=== PATIENT | male | born 1955 | race Caucasian/White ===

== ENCOUNTER 2017-09-29 14:31 | Emergency (ER) | payer OTHER, MEDICAID ==
[~2017-09-29] VITALS: Ht 162.6 cm; Wt 68.0 kg
--- NOTE | 2017-09-29 14:31 | NUR ---
Patient was BIBA and taken to bed 07 via gurney per EMS.
[2017-09-29 14:37] VITALS: BP 104/65
--- NOTE | 2017-09-29 14:50 | NUR ---
Note undone in EDM - 09/29/17 at 1451 by CHRISTIANO PT BIBA ACCOMPANIED BY CAREGIVER FOR EVALUATION OF HEAD PAIN S/P MECHANICAL FALL. HX I.D., ALZHEIMERS, OSTEOARTHRITIS, EPILEPSY, HYPERLIPIDEMIA, TRISOMY 21; DENIES N/V/D; SKIN IS PINK/WARM/DRY; AAOX4 WITH EVEN AND STEADY GAIT; LUNGS CLEAR BL; HR EVEN AND REGULAR; PT DENIES ANY FEVER, CP, SOB, OR COUGH AT THIS TIME; PATIENT STATES PAIN OF 4/10 AT THIS TIME; VSS; PATIENT POSITIONED FOR COMFORT; HOB ELEVATED; BEDRAILS UP X2; BED DOWN. ER MD MADE AWARE OF PT STATUS.
--- NOTE | 2017-09-29 14:50 | NUR ---
PT BIBA ACCOMPANIED BY CAREGIVER FOR EVALUATION OF HEAD PAIN S/P MECHANICAL FALL. HX I.D., ALZHEIMERS, OSTEOARTHRITIS, EPILEPSY, HYPERLIPIDEMIA, TRISOMY 21; DENIES N/V/D; SKIN IS PINK/WARM/DRY; AAOX4 BIB EMS VIA GURNEY; LUNGS CLEAR BL; HR EVEN AND REGULAR; PT DENIES ANY FEVER, CP, SOB, OR COUGH AT THIS TIME; PATIENT STATES PAIN OF 4/10 AT THIS TIME; VSS; PATIENT POSITIONED FOR COMFORT; HOB ELEVATED; BEDRAILS UP X2; BED DOWN. ER MD MADE AWARE OF PT STATUS.
[2017-09-29 15:55] VITALS: BP 120/67
--- NOTE | 2017-09-29 15:55 | NUR ---
Patient discharged with v/s stable. Written and verbal after care instructions given and explained. Patient verbalized understanding. Wheel Chair Assisted with by caregiver. All questions addressed prior to discharge. Advised to follow up with PMD.
== END 2017-09-29 15:55 | disposition home or self-care (01) ==
LOC: MED 14:31
DX: S09.8XXA Other specified injuries of head, initial encounter (principal); M47.892 Other spondylosis, cervical region; Q90.9 Down syndrome, unspecified; Z88.2 Allergy status to sulfonamides; W17.89XA Other fall from one level to another, initial encounter; Y93.89 Activity, other specified; Y92.89 Other specified places as the place of occurrence of the external cause; Y99.8 Other external cause status
CPT/HCPCS: 70450; 72125; 99284

== ENCOUNTER 2017-10-14 11:19 | Inpatient (IN) | payer OTHER, MEDICAID ==
[~2017-10-14] VITALS: Ht 162.6 cm; Wt 68.0 kg
--- NOTE | 2017-10-14 11:19 | NUR ---
Patient was BIBA and taken to bed 10 via gurney.
[2017-10-14 11:22] VITALS: BP 123/76
--- NOTE | 2017-10-14 11:41 | NUR ---
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
[2017-10-14] MEDS ORDERED: NACL 0.9% 1,000 ML IV ONE (12:30)
[2017-10-14 13:17] LABS: ANION GAP 10.5 (8-16); CARBON DIOXIDE 31.3 mmol/L (21-32); CREATININE 1.2 mg/dL (0.7-1.3); POTASSIUM 4.8 mmol/L (3.5-5.1)
[2017-10-14 13:21] LABS: BASOPHILS # (AUTO) 0.2 K/uL (0.00-0.22); BASOPHILS % (AUTO) 2.8 % (0.0-2.0); EOSINOPHILS # (AUTO) 0.1 K/uL (0-0.4); EOSINOPHILS % (AUTO) 0.6 % (0.0-4.0); HEMATOCRIT 49.7 % (36-52); HEMOGLOBIN 16.1 g/dL (12.0-18.0); LYMPHOCYTES # (AUTO) 1.3 K/uL (2.0-11.5); LYMPHOCYTES % (AUTO) 14.8 % (20.5-51.1); MEAN CORPUSCULAR HEMOGLOBIN 29 pg (27-31); MEAN CORPUSCULAR HGB CONC 33 g/dL (33-37); MEAN CORPUSCULAR VOLUME 90 fL (80-94); MONOCYTES # (AUTO) 0.2 K/uL (0.8-1.0); MONOCYTES % (AUTO) 2.8 % (1.7-9.3); NEUTROPHILS # (AUTO) 6.9 K/uL (1.8-7.7); PLATELET COUNT (AUTO) 254 K/uL (140-450); RED BLOOD CELL COUNT(AUTO) 5.49 MIL/uL (4.20-6.10); RED CELL DISTRIBUTION WIDTH 12.1 % (11.6-13.7); WHITE BLOOD COUNT (AUTO) 8.7 K/uL (4.8-10.8)
[2017-10-14 13:26] LABS: PROTHROMBIN TIME 10.9 secs (10.8-13.4)
[2017-10-14 13:27] LABS: ALBUMIN 3.4 g/dL (3.4-5.0); TOTAL BILIRUBIN 0.3 mg/dL (0.0-1.0)
[2017-10-14] MEDS ORDERED: NACL 0.9% 2,000 ML IV ONE (13:30)
--- NOTE | 2017-10-14 14:23 | NUR ---
CAREGIVER AT BEDSIDE;PT SLEEPING;NO ACUTE DISTRESS NOTED;
[2017-10-14] MEDS ORDERED: OSC500 PO ×2 (14:54→20:51)
[2017-10-14] MEDS ORDERED: [UNRECOGNIZED DRUG - CODE] PO (14:54)
[2017-10-14] MEDS ORDERED: CRAN450C PO (14:54)
[2017-10-14] MEDS ORDERED: CELE200C PO (14:54)
[2017-10-14] MEDS ORDERED: DONE10TA10 PO ×2 (14:54→20:51)
[2017-10-14] MEDS ORDERED: VITD1000 PO ×2 (14:54→20:51)
[2017-10-14] MEDS ORDERED: MULT-2246 PO (14:54)
[2017-10-14] MEDS ORDERED: HYDROcodone/APAP 7.5/325 MG 1 TAB PO PRN (15:10)
[2017-10-14] MEDS ORDERED: ONDANSETRON 4 MG/2 ML VIAL IVP PRN (15:10)
[2017-10-14] MEDS ORDERED: ACETAMINOPHEN 325 MG TAB PO PRN (15:10)
[2017-10-14 16:39] LABS: CHOL/HDL RATIO 3.5 (1-4.5); FREE T4 (FREE THYROXINE) 0.8 ng/dL (0.76-1.46); MAGNESIUM 2.2 mg/dL (1.8-2.4); PHOSPHORUS 3.9 mg/dL (2.5-4.9); THYROID STIMULATING HORMONE 2.53 uIU/mL (0.34-3.74)
--- NOTE | 2017-10-14 16:57 | NUR ---
Patient will be admitted to care of DR MCKEON. Admited to TELE. Will go to room 119 A. Belongings list completed. Report to JEISON BATES.
--- NOTE | 2017-10-14 16:58 | NUR ---
RECEIVED REPORT FROM THE ER NURSE. WILL GET ROOM READY. AWAIT PT ARRIVAL ON THE UNIT.
--- NOTE | 2017-10-14 17:35 | NUR ---
PT ARRIVED ON THE FLOOR WITH 2 ER NURSES ON A GURNEY. PT IS MENTALLY DELAYED, CONFUSED. HE VOIDED ON HIMSELF AND IS WET. PT HAS 2 ABRASIONS ON HIS FACE, ONE ON R FOREHEAD AND ONE ON HIS CHEEK. OTHERWISE, SKIN OVER ALL IS INTACT. CLEANED AND CHANGED PT. ADMINISTERED TELE MONITOR ON. YELLOW GOWN, BAND, SOCKS ON. MRSA SCREENING DONE. IV ON FA 22G SL. ORDERS FOR NS AT 50ML. WILL ADMINISTER. PT IS TAKING OFF THE LEADS. APPLIED MITTENS. TRYING TO CLIMB OUT OF BED. WILL MONITOR PT AND START ADMISSION PROCESS.
[2017-10-14 18:00] VITALS: BP 99/66
--- NOTE | 2017-10-14 19:12 | NUR ---
ENDORSE PT TO THE BASEBALL INSPECTOR NURSE AT BEDSIDE FOR CONTINUITY OF CARE. PT IS SLEEPING. NO SIGNS OF DISTRESS. PT POSSIBLY TRANSFERRING TO [facility] AFTER GTUBE PLACEMENT. NEED TO GET VERBAL AUTH FROM SHABBIR, GRAND DAUGHTER.
--- NOTE | 2017-10-14 19:30 | NUR ---
RECEIVED REPORT FROM AM NURSE. PT RESTING IN BED, AOX0, MAKES INCOMPREHENSIBLE SOUNDS, UNABLE TO VERBALIZE NEEDS. NO S/S OF ACUTE DISTRESS. MINING AND QUARRYING MACHINERY REPAIRER IN PLACE. ABRASIONS NOTED ON RIGHT FOREHEAD AND RIGHT CHEEK. IV ACCESS ASYMPTOMATIC, PATENT AND INTACT. WILL ADMINISTER IVF ORDERED. DISCUSSED AND REVIEWED PLAN OF CARE WITH PT. PT UNABLE TO COMPREHEND, WILL CONTINUE WITH CONSTANT REINFORCEMENT. ALL NEEDS MET. SAFETY MEASURES ENSURED. CALL LIGHT WITHIN REACH. WILL CONTINUE TO MONITOR.
[2017-10-14 20:00] VITALS: BP 105/68
[2017-10-14] MEDS: NACL 0.9% 1,000 ML IV SCH (20:00)
[2017-10-14] MEDS: DOCUSATE SODIUM 100 MG GELCAP PO SCH (20:05)
--- NOTE | 2017-10-14 20:05 | NUR ---
PT INCONTINENT IN URINE AND BM, PT CLEANED. TURNED AND REPOSITIONED PT, OFFLOADED PRESSURE AREAS. PT TOLERATED WELL. ADMINISTERED DUE MED WITH EDUCATION. WILL CONTINUE TO REINFORCE TEACHING. ALL NEEDS MET. IVF INFUSING WELL. SAFETY MEASURES ENSURED. CALL LIGHT WITHIN REACH. WILL CONTINUE TO MONITOR.
[2017-10-14] MEDS ORDERED: SIMV40TA1 PO (20:51)
--- NOTE | 2017-10-14 22:09 | NUR ---
PT CLEANED, TURNED AND REPOSITIONED, OFFLOADED PRESSURE AREAS BY CNAs. PT TOLERATED WELL.
[2017-10-15] VITALS: BP 112/62
--- NOTE | 2017-10-15 00:15 | NUR ---
PT CLEANED, TURNED AND REPOSITIONED, OFFLOADED PRESSURE AREAS BY CNAs. CONDITION STABLE. ALL NEEDS MET. IVF INFUSING WELL. SAFETY MEASURES ENSURED. CALL LIGHT WITHIN REACH. WILL CONTINUE TO MONITOR.
[2017-10-15 04:00] VITALS: BP 92/47
--- NOTE | 2017-10-15 04:16 | NUR ---
PT CLEANED, TURNED AND REPOSITIONED, OFFLOADED PRESSURE AREAS. CONDITION STABLE. ALL NEEDS MET. IVF INFUSING WELL. SAFETY MEASURES ENSURED. CALL LIGHT WITHIN REACH. WILL CONTINUE TO MONITOR.
--- NOTE | 2017-10-15 04:35 | NUR ---
MADE DR LAMBERT AWARE OF PT'S BP 92/47, MAP 62 AND 88/53, MAP 66; NO ORDERS FOR BOLUS, MD STATED IT IS OK LONG MAP > 60. PT IS AWAKE, ALERT, RESPONSIVE, NO S/S OF ACUTE DISTRESS.
[2017-10-15 06:23] LABS: BASOPHILS # (AUTO) 0.2 K/uL (0.00-0.22); BASOPHILS % (AUTO) 3.5 % (0.0-2.0); EOSINOPHILS # (AUTO) 0.1 K/uL (0-0.4); EOSINOPHILS % (AUTO) 2.5 % (0.0-4.0); HEMATOCRIT 40.8 % (36-52); LYMPHOCYTES # (AUTO) 1.2 K/uL (2.0-11.5); LYMPHOCYTES % (AUTO) 20.5 % (20.5-51.1); MEAN CORPUSCULAR HEMOGLOBIN 34 pg (27-31); MEAN CORPUSCULAR HGB CONC 34 g/dL (33-37); MEAN CORPUSCULAR VOLUME 99 fL (80-94); MONOCYTES # (AUTO) 0.8 K/uL (0.8-1.0); MONOCYTES % (AUTO) 13.4 % (1.7-9.3); NEUTROPHILS # (AUTO) 3.5 K/uL (1.8-7.7); NEUTROPHILS % (AUTO) 60.1 % (42.2-75.2); PLATELET COUNT (AUTO) 176 K/uL (140-450); RED BLOOD CELL COUNT(AUTO) 4.14 MIL/uL (4.20-6.10); RED CELL DISTRIBUTION WIDTH 12.6 % (11.6-13.7); WHITE BLOOD COUNT (AUTO) 5.8 K/uL (4.8-10.8)
[2017-10-15 06:45] LABS: CARBON DIOXIDE 28.9 mmol/L (21-32); POTASSIUM 3.9 mmol/L (3.5-5.1)
[2017-10-15 06:54] LABS: MAGNESIUM 1.8 mg/dL (1.8-2.4); PHOSPHORUS 2.8 mg/dL (2.5-4.9)
--- NOTE | 2017-10-15 07:15 | NUR ---
ASSUMED CONTINUITY OF CARE. NO SIGNS AND SYMPTOMS OF ACUTE DISTRESS NOTICED. INITIAL ASSESSMENT DONE. HOB ELEVATED AND KEEP COMFORTABLE. SEIZURE AND FALL PRECAUTION APPLIED. CALL LIGHT WITHIN REACH.
--- NOTE | 2017-10-15 07:15 | NUR ---
ENDORSED PLAN OF CARE TO AM NURSE. CONDITION STABLE.
[2017-10-15 08:00] VITALS: BP 98/67
--- NOTE | 2017-10-15 08:31 | NUR ---
PATIENT HAS BEEN SCREENED AND CATEGORIZED MODERATE NUTRITION RISK. PATIENT WILL BE SEEN WITHIN 3-5 DAYS OF ADMISSION. 10/17/17-10/19/[address]
[2017-10-15] MEDS: DOCUSATE SODIUM 100 MG GELCAP PO SCH ×2 (08:50→21:54)
[2017-10-15] MEDS ORDERED: MECLIZINE 25 MG TAB PO PRN (11:10)
--- NOTE | 2017-10-15 11:38 | NUR ---
SEEN WATCHING TV AT THIS TIME. NO DISCOMFORT NOTED. KEEP FROM FALL. CALL LIGHT WITHIN REACH.
[2017-10-15 12:00] VITALS: BP 97/57
[2017-10-15 12:53] LABS: APPEARANCE,URINE CLEAR (CLEAR); BILIRUBIN,URINE NEGATIVE (NEGATIVE); BLOOD, URINE NEGATIVE (NEGATIVE); COLOR,URINE YELLOW (YELLOW); LEUKOCYTE ESTERASE ,URINE NEGATIVE (NEGATIVE); NITRITE, URINE NEGATIVE (NEGATIVE); PH,URINE 5.5 (5.0-9.0); UGLUCOSE NEGATIVE (NEGATIVE)
[2017-10-15] MEDS: NACL 0.9% 1,000 ML IV SCH (12:58)
[2017-10-15 16:00] VITALS: BP 106/60
--- NOTE | 2017-10-15 17:20 | NUR ---
PM CARE PROVIDED WITH ASSISTANCE FROM URIEL FERNÁNDZE. TOLERATED WELL. NO SOB, NOTED. KEEP COMFORTABLE ON BED. CALL LIGHT WITHIN REACH.
[2017-10-15] MEDS: SIMVASTATIN 40 MG TAB PO SCH (17:22)
--- NOTE | 2017-10-15 19:09 | NUR ---
BEDSIDE REPORT GIVEN TO PATRICIA DREW -JEISON. IVF INFUSING WELL. IN STABLE CONDITION.
--- NOTE | 2017-10-15 19:15 | NUR ---
RECEIVED REPORT FROM DAY SHIFT NURSE. PT AWAKE, LYING COMFORTABLY IN BED. IV TO RIGHT FA #22G NS AT 50ML/HR. PT UNABLE TO VERBALIZE NEEDS. ABRASION TO FOREHEAD AND RIGHT CHEEK. DISCUSSED PLAN OF CARE TO PT, UNABLE TO COMPREHEND. SAFETY PRECAUTION IN PLACE. WILL CONTINUE TO MONITOR.
[2017-10-15 20:00] VITALS: BP 98/60
--- NOTE | 2017-10-15 21:50 | NUR ---
NO S/S OF PAIN OR DISCOMFORT. ALL NEEDS MET AT THIS TIME. CALL LIGHT WITHIN REACH.
[2017-10-15] MEDS: DONEPEZIL 10 MG TAB PO SCH (21:54)
[2017-10-16] VITALS: BP 103/63
--- NOTE | 2017-10-16 00:30 | NUR ---
PT AWAKE. NO S/S OF DISTRESS NOTED. CALL LIGHT WITHIN REACH.
--- NOTE | 2017-10-16 03:10 | NUR ---
PT TURNED AND REPOSITIONED. ALL NEEDS MET AT THIS TIME. CALL LIGHT WITHIN REACH
[2017-10-16 04:00] VITALS: BP 100/62
[2017-10-16 06:32] LABS: BASOPHILS # (AUTO) 0.2 K/uL (0.00-0.22); BASOPHILS % (AUTO) 3.3 % (0.0-2.0); EOSINOPHILS # (AUTO) 0.2 K/uL (0-0.4); EOSINOPHILS % (AUTO) 2.3 % (0.0-4.0); HEMATOCRIT 41.7 % (36-52); HEMOGLOBIN 13.9 g/dL (12.0-18.0); LYMPHOCYTES # (AUTO) 1.4 K/uL (2.0-11.5); MEAN CORPUSCULAR HEMOGLOBIN 33 pg (27-31); MEAN CORPUSCULAR HGB CONC 34 g/dL (33-37); MEAN CORPUSCULAR VOLUME 98 fL (80-94); MONOCYTES # (AUTO) 0.9 K/uL (0.8-1.0); NEUTROPHILS # (AUTO) 4.4 K/uL (1.8-7.7); NEUTROPHILS % (AUTO) 62.4 % (42.2-75.2); PLATELET COUNT (AUTO) 177 K/uL (140-450); RED BLOOD CELL COUNT(AUTO) 4.24 MIL/uL (4.20-6.10); RED CELL DISTRIBUTION WIDTH 12.2 % (11.6-13.7); WHITE BLOOD COUNT (AUTO) 7.1 K/uL (4.8-10.8)
--- NOTE | 2017-10-16 07:05 | NUR ---
ASSUMED CONTINUITY OF CARE. NO SIGNS AND SYMPTOMS OF ACUTE DISTRESS NOTED. INITIAL ASSESSMENT DONE. HOB ELEVATED. RE-ORIENTED TO EVENTS AND SURROUNDINGS. SEIZURE AND FALL PRECAUTION APPLIED. CALL LIGHT WITHIN REACH.
--- NOTE | 2017-10-16 07:05 | NUR ---
ENDORSED PT TO DAY SHIFT NURSE. PT IN STABLE CONDITION.
[2017-10-16] MEDS: NACL 0.9% 1,000 ML IV SCH ×2 (07:07→09:08)
[2017-10-16 07:37] LABS: ANION GAP 10.8 (8-16); CARBON DIOXIDE 28.7 mmol/L (21-32); MAGNESIUM 1.8 mg/dL (1.8-2.4); PHOSPHORUS 2.9 mg/dL (2.5-4.9); POTASSIUM 3.5 mmol/L (3.5-5.1)
[2017-10-16 08:00] VITALS: BP 102/66
[2017-10-16] MEDS: CALCIUM CARBONATE 500 MG TAB PO SCH (08:42)
[2017-10-16] MEDS: VITAMIN D 400 IU TAB PO SCH (08:43)
[2017-10-16] MEDS: DOCUSATE SODIUM 100 MG GELCAP PO SCH ×2 (08:43→21:14)
[2017-10-16] MEDS: CELECOXIB 100 MG CAP PO SCH (08:43)
[2017-10-16 12:00] VITALS: BP 95/63
[2017-10-16 16:00] VITALS: BP 106/59
[2017-10-16] MEDS: SIMVASTATIN 40 MG TAB PO SCH (16:46)
--- NOTE | 2017-10-16 17:00 | NUR ---
PM CARE PROVIDED BY CLEVELAND DOMÍNGUEZ -BRICE AND LIZANDRO FERNÁNDEZ. TOLERATED WELL. NO SOB, NOTED. KEEP COMFORTABLE ON BED.
--- NOTE | 2017-10-16 19:11 | NUR ---
BEDSIDE REPORT GIVEN TO PATRICIA DREW -JEISON. IVF INFUSING WELL. IN STABLE CONDITION.
--- NOTE | 2017-10-16 19:13 | NUR ---
RECEIVED REPORT FROM DAY SHIFT NURSE AT BEDSIDE. PT AWAKE, LYING COMFORTABLY IN BED. IV TO RIGHT FA #22G NS AT 50ML/HR, INFUSING WELL. PT UNABLE TO VERBALIZE NEEDS. SAFETY AND SEIZURE PRECAUTION IN PLACE. CALL LIGHT WITHIN REACH. WILL CONTINUE TO MONITOR
[2017-10-16 20:00] VITALS: BP 124/77
--- NOTE | 2017-10-16 21:05 | NUR ---
PT TURNED AND REPOSITIONED. NO S/S OF PAIN OR DISCOMFORT. CALL LIGHT WITHIN REACH.
[2017-10-16] MEDS: DONEPEZIL 10 MG TAB PO SCH (21:14)
[2017-10-17] VITALS: BP 105/61
--- NOTE | 2017-10-17 00:45 | NUR ---
PT IN BED AWAKE. NO S/S OF DISTRESS. ALL NEEDS MET AT THIS TIME. CALL LIGHT WITHIN REACH.
--- NOTE | 2017-10-17 01:10 | NUR ---
TURNED AND REPOSITIONED PT. NO S/S OF DISCOMFORT OR PAIN. CALL LIGHT WITHIN REACH.
[2017-10-17 04:00] VITALS: BP 116/74
--- NOTE | 2017-10-17 04:00 | NUR ---
PT SLEEPNG BUT WAKES EASILY. NO S/S OF DISTRESS NOTED. CALL LIGHT WITHIN REACH.
--- NOTE | 2017-10-17 07:07 | NUR ---
ENDORSED PT TO DAY SHIFT NURSE. PT IN STABLE CONDITION.
--- NOTE | 2017-10-17 07:10 | NUR ---
RECEIVED REPORT FROM SET OFF BLOCKER NURSE, PT IS SLEEPING IN BED, AWAKEN WHEN CALLED BY NAME, PT IS A/OX1, PT IS APHASIC, UNABLE TO AMBULATE, PT HAS SKIN ON ABRASION ON HIS FOREHEAD AND ON HIS CHEEK, NO S/S OF RESPIRATORY DISTRESS OR DISCOMFORT NOTED, DISCUSSED PLAN OF CARE WITH PT, PT UNABLE TO VERBALIZE UNDERSTANDING, SAFETY/FALL/SEIZURE PRECAUTIONS ARE IN PLACE, CALL LIGHT IS WITHIN REACH, WILL CONTINUE TO MONITOR.
[2017-10-17 07:15] LABS: BASOPHILS # (AUTO) 0.3 K/uL (0.00-0.22); BASOPHILS % (AUTO) 4.3 % (0.0-2.0); EOSINOPHILS # (AUTO) 0.2 K/uL (0-0.4); EOSINOPHILS % (AUTO) 2.7 % (0.0-4.0); HEMATOCRIT 42.1 % (36-52); HEMOGLOBIN 14.3 g/dL (12.0-18.0); LYMPHOCYTES # (AUTO) 1.4 K/uL (2.0-11.5); LYMPHOCYTES % (AUTO) 24.1 % (20.5-51.1); MEAN CORPUSCULAR HEMOGLOBIN 33 pg (27-31); MEAN CORPUSCULAR HGB CONC 34 g/dL (33-37); MEAN CORPUSCULAR VOLUME 98 fL (80-94); MONOCYTES # (AUTO) 0.8 K/uL (0.8-1.0); MONOCYTES % (AUTO) 13.8 % (1.7-9.3); NEUTROPHILS # (AUTO) 3.3 K/uL (1.8-7.7); NEUTROPHILS % (AUTO) 55.1 % (42.2-75.2); PLATELET COUNT (AUTO) 166 K/uL (140-450); RED BLOOD CELL COUNT(AUTO) 4.29 MIL/uL (4.20-6.10); RED CELL DISTRIBUTION WIDTH 12.1 % (11.6-13.7)
[2017-10-17 07:39] LABS: CARBON DIOXIDE 28.5 mmol/L (21-32); CREATININE 1.1 mg/dL (0.7-1.3); POTASSIUM 3.5 mmol/L (3.5-5.1)
[2017-10-17 07:42] LABS: MAGNESIUM 1.9 mg/dL (1.8-2.4); PHOSPHORUS 3.4 mg/dL (2.5-4.9)
[2017-10-17 08:00] VITALS: BP 114/75
[2017-10-17] MEDS: DOCUSATE SODIUM 100 MG GELCAP PO SCH (09:00)
[2017-10-17] MEDS: VITAMIN D 400 IU TAB PO SCH (09:16)
[2017-10-17] MEDS: CALCIUM CARBONATE 500 MG TAB PO SCH (09:16)
[2017-10-17] MEDS: CELECOXIB 100 MG CAP PO SCH (09:16)
--- NOTE | 2017-10-17 09:16 | NUR ---
DUE MEDICATIONS GIVEN, PT REFUSED COLACE. CALL LIGHT WITHIN REACH, WILL CONTINUE TO MONITOR.
--- NOTE | 2017-10-17 11:00 | NUR ---
PATIENT TURNED, BED LINENS CHANGED, GOWN CHANGED, ALL NEEDS ARE MET AT THIS TIME.
[2017-10-17 12:00] VITALS: BP 96/54
--- NOTE | 2017-10-17 14:12 | NUR ---
PT IS RESTING IN BED AT THIS TIME, CALL LIGHT WITHIN REACH.
--- NOTE | 2017-10-17 15:04 | NUR ---
I CALLED [facility] AT [phone] AND SPOKE TO NAKUL, I LET HER KNOW THE PATIENT WAS BEING DISCHARGED AND I WAS CALLING TO GIVE REPORT AND ASK THEM WHAT TIME THEY WOULD BE ABLE TO SLEEP TECH THE PATIENT. NAKUL SAID SHE WOULD CALL THEIR TRANSPORT BUT THEY SHOULD BE ABLE TO PICK THE PATIENT UP IN ABOUT 1 HOUR.
--- NOTE | 2017-10-17 16:55 | NUR ---
DISCHARGE INSTRUCTIONS GIVEN TO CAREGIVER, ID WRIST BAND REMOVED, IV REMOVED, CATHETER TIP INTACT. PT STABLE UPON DISCHARGE ACCOMPANIED BY CAREGIVER.
== END 2017-10-17 16:55 | disposition home or self-care (01) | DRG 914 ==
LOC: MED 11:19 → MTU 15:14
PROVIDERS: ADMIT Family Medicine; ATTEND Family Medicine
DX: S09.90XA Unspecified injury of head, initial encounter (principal); E87.8 Other disorders of electrolyte and fluid balance, not elsewhere classified; F03.90 Unspecified dementia, unspecified severity, without behavioral disturbance, psychotic disturbance, mood disturbance, and anxiety; E11.65 Type 2 diabetes mellitus with hyperglycemia; F07.81 Postconcussional syndrome; E83.51 Hypocalcemia; G40.909 Epilepsy, unspecified, not intractable, without status epilepticus; N30.90 Cystitis, unspecified without hematuria; R55 Syncope and collapse; E86.0 Dehydration; E78.5 Hyperlipidemia, unspecified; E66.3 Overweight; I10 Essential (primary) hypertension; E78.00 Pure hypercholesterolemia, unspecified; M19.90 Unspecified osteoarthritis, unspecified site; Z68.25 Body mass index [BMI] 25.0-25.9, adult; W18.39XA Other fall on same level, initial encounter; Z88.2 Allergy status to sulfonamides; Z79.899 Other long term (current) drug therapy; Y93.89 Activity, other specified; Y92.89 Other specified places as the place of occurrence of the external cause; Y99.8 Other external cause status
CPT/HCPCS: 36415; 70450; 71010; 72125; 80048; 80053; 81003; 82150; 83036; 83605; 83690; 83735; 83880; 84100; 84439; 84443; 84484; 85025; 85610; 85730; 87040; 87081; 87086; 93005; 93880; 96360; 96361; 99285; J7030; Q0092